=== PATIENT | male | born 1980 | race Caucasian/White ===

== ENCOUNTER 2017-07-07 14:32 | Inpatient (IN) | payer OTHER ==
[~2017-07-07] VITALS: Ht 182.9 cm; Wt 69.5 kg
[~2017-07-07 14:32] MED LIST: AMLODIPINE BESY10 MG PO; DIAZEPAM10 MG PO; MS CONTIN30 MG PO; NOVOLOG VI100 UNIT/1 SQ; VALSARTAN80 MG PO
[2017-07-07 15:47] LABS: BASOPHIL 0.2 % (0-2); EOSINOPHIL 0 % (0-5); HGB 14.8 g/dl (13.2-18.0); LYMPHOCYTE 9.3 % (15-48); MCH 31.2 pg (25.0-31.0); MCHC 36.1 g/dL (32.0-36.0); MCV 86.3 fL (78.0-100.0); MONOCYTE 6.3 % (0-12); MPV 9.9 fL (6.0-9.5); NEUTROPHIL 84.2 % (41-80); PLT 473 K/uL (150-400); RBC 4.75 M/uL (4.70-6.00); RDW 11.9 % (11.5-14.0)
[2017-07-07 15:49] LABS: BILIRUBIN 1+ mg/dL (NEGATIVE); BLOOD TRACE-INTACT Ery/uL (NEGATIVE); CLARITY CLEAR (CLEAR); COLOR YELLOW (YELLOW); GLUCOSE (U) 3+ mg/dL (NORMAL); KETONE (U) 3+ (LARGE) mg/dL (NEGATIVE); LEUKOCYTES NEGATIVE Leu/uL (NEGATIVE); NITRITE NEGATIVE (NEGATIVE); PROTEIN NEGATIVE (NEGATIVE); SPECIFIC GRAVITY 1.025 (1.001-1.030); UROBILINOGEN 0.2 mg/dL (0.2-1.0); pH 5.5 (5.0-9.0)
[2017-07-07 15:57] LABS: BACTERIA TRACE; SQUAMOUS EPITHELIAL CELLS RARE; URINARY RBC RARE; URINARY WBC RARE
[2017-07-07 16:05] LABS: ALBUMIN 4.6 g/dL (3.5-5.0); BILIRUBIN - TOTAL 1.3 mg/dL (0.1-1.0); CREATININE 1.3 mg/dL (0.7-1.2); GLOBULIN (CALCULATION) 3.6 g/dL (2.2-4.2); POTASSIUM 5.5 mmol/L (3.5-5.1); TOTAL PROTEIN 8.2 g/dL (6.4-8.3)
[2017-07-07 21:35] LABS: CREATININE 0.9 mg/dL (0.7-1.2); MAGNESIUM 1.83 mg/dL (1.40-2.10); PHOSPHORUS 1.7 mg/dL (2.7-4.5); POTASSIUM 4.2 mmol/L (3.5-5.1)
[2017-07-08 03:14] LABS: HCT 32.1 % (42.0-52.0); HGB 11.3 g/dl (13.2-18.0); MCH 30.6 pg (25.0-31.0); MCHC 35.2 g/dL (32.0-36.0); MPV 9.2 fL (6.0-9.5); RBC 3.69 M/uL (4.70-6.00); RDW 12.1 % (11.5-14.0)
[2017-07-08 03:26] LABS: INR 1.11 (0.9-1.2); PROTHROMBIN TIME 13.4 SECONDS (11.4-13.2)
[2017-07-08 03:37] LABS: CREATININE 0.8 mg/dL (0.7-1.2); MAGNESIUM 1.71 mg/dL (1.40-2.10); PHOSPHORUS 1.2 mg/dL (2.7-4.5); POTASSIUM 4.2 mmol/L (3.5-5.1)
[2017-07-08 04:51] LABS: AMPHETAMINES NEGATIVE (NEGATIVE); BARBITURATES NEGATIVE (NEGATIVE); BENZODIAZEPINES POSITIVE (NEGATIVE); COCAINE NEGATIVE (NEGATIVE); MARIJUANA (THC) POSITIVE (NEGATIVE); METHADONE NEGATIVE (NEGATIVE); TRICYCLIC ANTIDEPRESSANT NEGATIVE (NEGATIVE)
[2017-07-08 15:46] LABS: MAGNESIUM 1.61 mg/dL (1.40-2.10); PHOSPHORUS 1.1 mg/dL (2.7-4.5)
[2017-07-08 21:21] LABS: MAGNESIUM 1.61 mg/dL (1.40-2.10); PHOSPHORUS 1.5 mg/dL (2.7-4.5)
[2017-07-09 03:33] LABS: MAGNESIUM 1.64 mg/dL (1.40-2.10); PHOSPHORUS 1.7 mg/dL (2.7-4.5)
== END 2017-07-09 16:48 | disposition home or self-care (01) | DRG 639 ==
LOC: FER 14:32 → FICU 16:33 → FMS 07-08 16:00
PROVIDERS: Emergency Medicine; ADMIT Internal Medicine
DX: E10.10 Type 1 diabetes mellitus with ketoacidosis without coma (principal); G62.9 Polyneuropathy, unspecified; E83.42 Hypomagnesemia; E10.40 Type 1 diabetes mellitus with diabetic neuropathy, unspecified; Z79.4 Long term (current) use of insulin; E83.39 Other disorders of phosphorus metabolism; I10 Essential (primary) hypertension; A08.4 Viral intestinal infection, unspecified; R00.0 Tachycardia, unspecified; Z82.3 Family history of stroke; G89.4 Chronic pain syndrome; M79.7 Fibromyalgia; E87.5 Hyperkalemia
CPT/HCPCS: 36415; 36600; 71010; 80048; 80053; 80305; 81001; 82009; 82803; 82962; 83690; 83735; 84100; 84484; 85025; 85610; 87088; 93005; J2270; J2405